=== PATIENT | male | born 1985 ===

== ENCOUNTER 2019-03-01 18:39 | Outpatient (CLI) | END 2019-03-01 18:52 | disposition short-term general hospital (02) | LOC: AMBL 18:39 | PROVIDERS: ATTEND Internal Medicine | DX: F13.239 Sedative, hypnotic or anxiolytic dependence with withdrawal, unspecified (principal); F41.9 Anxiety disorder, unspecified; R00.0 Tachycardia, unspecified; F32.9 Major depressive disorder, single episode, unspecified; Z91.14 Patient's other noncompliance with medication regimen ==